=== PATIENT | female | born 1940 | race Caucasian/White ===

== ENCOUNTER 2025-06-09 09:34 | Day surgery (SDC) | payer MEDICARE ==
[2025-06-09] MEDS ORDERED: LIDOCAINE HCL 1% 50 MG/5 ML VL IJ ONE (09:35)
[2025-06-09] MEDS ORDERED: Sodium Chloride 0.9(Preservative Free) 10 ML IJ ONE (09:35)
[2025-06-09] MEDS ORDERED: Lactated Ringers 1,000 ML IV ONE (11:29)
[2025-06-09] MEDS ORDERED: propofoL IV ONE (11:32)
--- NOTE | 2025-06-09 13:02 | XRAY ---
Indication: Left piriformis injection. Intraoperative fluoroscopy provided for 8 seconds. Single digital spot image submitted for interpretation demonstrates posterior needle tip projecting over left piriformis. Small amount of contrast injected for needle tip placement. Correlate with intraoperative findings/report.
--- NOTE | 2025-06-09 13:02 | XRAY ---
Indication: Left L4-S1 transforaminal EARLENE. Intraoperative fluoroscopy provided for 34 seconds. 4 digital spot image submitted for interpretation demonstrates posterior needle tips projecting over expected left L4 and L5 nerve roots. Small amount of contrast injected for needle tip placement. Correlate with intraoperative findings/report.
--- NOTE | 2025-06-09 13:12 | XRAY ---
34 seconds of fluoroscopy was used in surgery for a left L4-S1 transforaminal EARLENE.
--- NOTE | 2025-06-09 13:13 | XRAY ---
8 seconds of fluoroscopy was used in surgery for a left piriformis injection.
== END 2025-06-09 12:11 | disposition home or self-care (01) ==
LOC: SDC-PAIN 09:34
PROVIDERS: ATTEND Psychiatry & Neurology Pain Medicine
DX: M54.16 Radiculopathy, lumbar region (principal); M79.18 Myalgia, other site; R73.03 Prediabetes